=== PATIENT | female | born 1955 | race Caucasian/White ===

== ENCOUNTER → 2024-06-05 | Outpatient (CLI) | payer OTHER ==
[~2024-06-05] MED LIST: ABIL15TA OR; ABIL30TA4; ABIL30TA4 OR; ARIP30TA38 PO; BABY81CH OR; BENZ0.5T2 PO; BUPR15TA; COGE1INJ PO; COGENTIN PO; COLA100C2 OR; CYMB1CAP5 OR; DEPLIN; ESZOPICLONE 3 MG; EZET10TA21 PO; FENO134C20 PO; FERR325T OR; FLUO40CA PO; GABA800T3 PO; GEMF600T OR; GEOD20CA14; HYDR-3363 PO; HYDR50TA8 OR; HYDROXYZINE PO; LAMI1TAB7 OR; LAMI25TA OR; LITH150C OR; LITH450T; LOPI600T OR; LOVA10TA OR; MULTI VITAMIN PO; NALTREXONE; PROZ20CA OR; PROZ40CA OR; REME30TA OR; REQU1TAB14 OR; REQU1TAB15; REST15CA OR; RISP1TAB OR; SERO1TAB; SERO200T OR; SERO200T43; SERO300T20; TEMA15CA2 OR; THORAZINE PO; TRAZ-186 PO; TRAZ100T; TRAZ150T OR; TRIL1TAB OR; TRIL600T OR; VENTAER INH; VITAMIN D PO; VITAMIN D50000 UNT OR; WELL200T; WELL75TA OR; ZIPR80CAP OR; ZOCO5TAB OR
== END ==
LOC: M RAD 14:55
PROVIDERS: ATTEND Physician Assistant
DX: M25.551 Pain in right hip (principal); M16.0 Bilateral primary osteoarthritis of hip; M17.0 Bilateral primary osteoarthritis of knee

== ENCOUNTER 2024-06-10 06:04 | Observation (INO) | payer OTHER ==
[2024-06-10] VITALS (7 sets, daily range): BP systolic 107–137; BP diastolic 55–74; TEMP 96.6–98; O2SAT 97–99
[~2024-06-10] VITALS: Ht 170.2 cm; Wt 82.9 kg
[2024-06-10] MEDS ORDERED: NS (Normal Saline) 0.9% 1,000 ML IV SCH (06:15)
[2024-06-10] MEDS ORDERED: dexmedeTOMIDine (4MCG/ML)200MCG/50ML BTL (PRECEDEX) As Ordered ONE (07:00)
[2024-06-10] MEDS ORDERED: ONDANSETRON 4MG 2ML VIAL As Ordered ONE (07:00)
[2024-06-10] MEDS ORDERED: ACETAMINOPHEN 1000MG/100ML IV BAG As Ordered ONE (07:00)
[2024-06-10] MEDS ORDERED: fentaNYL 100 MCG/2 ML INJECTION As Ordered ONE (07:00)
[2024-06-10] MEDS ORDERED: LIDOCAINE 2% 100MG/5ML SDV (FOR ANES.) As Ordered ONE (07:00)
[2024-06-10] MEDS ORDERED: propofoL 200 MG/20 ML VIAL As Ordered ONE (07:00)
[2024-06-10] MEDS ORDERED: MIDAZOLAM INJ 2MG/2ML VIAL As Ordered ONE (07:01)
[2024-06-10] MEDS ORDERED: HYDR-3363 PO (07:09)
[2024-06-10] MEDS ORDERED: HOME MED LIST COMPLETE! XX SCH (07:10)
[2024-06-10] MEDS ORDERED: ROCURONIUM BROMIDE 50MG/5ML VIAL As Ordered ONE (07:23)
[2024-06-10] MEDS: ceFAZolin SOD 2 GM in IV 1 EA IV ONE (08:25)
[2024-06-10] MEDS ORDERED: GLYCOPYRROLATE INJ 0.2 MG/ML 2 ML VIAL As Ordered ONE (08:38)
[2024-06-10] MEDS ORDERED: ATROPINE SULF 0.4 MG/ML 1ML VIAL As Ordered ONE (09:04)
[2024-06-10] MEDS ORDERED: PHENYLephrine 500MCG 5ML (100MCG/ML) SYRINGE As Ordered ONE (09:43)
[2024-06-10] MEDS: REK 50ML SYRINGE IA ONE (10:45)
[2024-06-10] MEDS: TRANEXAMIC ACID 100 MG/ML 10ML VIAL As Ordered ONE (10:50)
[2024-06-10] MEDS: VANCOMYCIN 1000MG/20ML VIAL As Ordered ONE (10:50)
[2024-06-10] MEDS ORDERED: oxyCODONE 5MG TAB PO PRN (11:10)
[2024-06-10] MEDS ORDERED: HYDROMORPHONE HCL 0.5 MG/ 0.5 ML SYRINGE IV PRN (11:10)
[2024-06-10] MEDS ORDERED: ONDANSETRON 4MG 2ML VIAL IV PRN (11:10)
[2024-06-10] MEDS ORDERED: fentaNYL 100 MCG/2 ML INJECTION IV PRN (11:10)
[2024-06-10] MEDS ORDERED: KETAMINE HCL 200MG/20ML VIAL As Ordered ONE (11:23)
[2024-06-10] MEDS: NS (Normal Saline) 0.9% 800 ML IV ONE (11:38)
[2024-06-10] MEDS: PHENYLephrine 500MCG 5ML (100MCG/ML) SYRINGE IV PRN (11:40)
[2024-06-10 12:04] LABS: HEMATOCRIT 31.1 % (36.0-47.0); HEMOGLOBIN 10.3 g/dl (12.0-15.5); MEAN CORPUSCULAR HEMOGLOBIN 29.4 pg (27.0-33.0); MEAN CORPUSCULAR HGB CONC 33.1 g/dl (32.0-36.5); MEAN CORPUSCULAR VOLUME 88.9 fl (80.0-96.0); PLATELET COUNT, AUTOMATED 224 10^3/uL (150-450); WHITE BLOOD COUNT 14.6 10^3/uL (4.0-10.0)
[2024-06-10] MEDS: PHENYLEPHRINE HCL INJ 10 MG in D5W 100 ML IV SCH (12:10)
[2024-06-10] MEDS ORDERED: ACETAMINOPHEN 500 MG TAB PO PRN (15:25)
[2024-06-10] MEDS ORDERED: ALBUTEROL 90 MCG/ACT 8GM HFA INHALER INH PRN (15:25)
[2024-06-10] MEDS: ceFAZolin SOD 2 GM in IV 1 EA IV SCH (16:16)
[2024-06-10] MEDS: NS (Normal Saline) 0.9% 1,000 ML IV SCH (19:55)
[2024-06-10] MEDS: traZODone 50 MG TAB PO SCH (21:01)
[2024-06-10] MEDS: FLUoxetine 20MG CAP PO SCH (21:01)
[2024-06-10] MEDS: BENZTROPINE 0.5 MG TAB PO SCH (21:02)
[2024-06-10] MEDS: EZETIMIBE 10MG TABLET (ZETIA) PO SCH (21:02)
[2024-06-11] VITALS (7 sets, daily range): BP systolic 103–156; BP diastolic 47–98; TEMP 97.2–98.4; O2SAT 93–99
[2024-06-11] MEDS: KETOROLAC 30 MG/ML 1ML VIAL IV PRN (00:58)
[2024-06-11 06:42] LABS: HEMOGLOBIN 8.6 g/dl (12.0-15.5); MEAN CORPUSCULAR HEMOGLOBIN 29.2 pg (27.0-33.0); MEAN CORPUSCULAR HGB CONC 33.1 g/dl (32.0-36.5); MEAN CORPUSCULAR VOLUME 88.1 fl (80.0-96.0); PLATELET COUNT, AUTOMATED 177 10^3/uL (150-450); RED BLOOD COUNT 2.95 10^6/uL (4.00-5.40); WHITE BLOOD COUNT 10.2 10^3/uL (4.0-10.0)
[2024-06-11 07:17] LABS: BLOOD UREA NITROGEN 15 MG/DL (9-23); CALCIUM LEVEL 8.9 MG/DL (8.3-10.6); CARBON DIOXIDE LEVEL 26 MMOL/L (20-31); CHLORIDE LEVEL 112 MMOL/L (98-107); CREATININE FOR GFR 0.77 MG/DL (0.55-1.30); GLOMERULAR FILTRATION RATE > 60.0 (>45); GLUCOSE, FASTING 119 MG/DL (74-106); POTASSIUM SERUM 3.9 MMOL/L (3.5-5.1); SODIUM LEVEL 143 MMOL/L (136-145)
[2024-06-11] MEDS ORDERED: PHENYLEPHRINE 10MG/ML 1ML VIAL As Ordered ONE (09:30)
[2024-06-11 12:29] LABS: HEMATOCRIT 28.2 % (36.0-47.0); HEMOGLOBIN 9.3 g/dl (12.0-15.5)
[2024-06-11] MEDS ORDERED: PERC5TAB12 PO (13:29)
[2024-06-11] MEDS ORDERED: ACET-683 PO (13:29)
[2024-06-11] MEDS ORDERED: IBUP-1022 PO (13:29)
[2024-06-11] MEDS ORDERED: ASPI-615 PO (13:29)
[2024-06-11] MEDS ORDERED: COLA100C5 PO (13:29)
== END 2024-06-11 15:13 | disposition home health service (06) ==
LOC: M SDC 06:04 → M RR INP 06:05 → M PCU 15:03
PROVIDERS: ADMIT Internal Medicine Nephrology; ATTEND Internal Medicine Nephrology
DX: M16.11 Unilateral primary osteoarthritis, right hip (principal); I95.81 Postprocedural hypotension; D62 Acute posthemorrhagic anemia; E78.5 Hyperlipidemia, unspecified; J45.909 Unspecified asthma, uncomplicated; F25.0 Schizoaffective disorder, bipolar type; F43.10 Post-traumatic stress disorder, unspecified; G47.30 Sleep apnea, unspecified; F44.7 Conversion disorder with mixed symptom presentation; F50.20 Bulimia nervosa, unspecified; Z98.890 Other specified postprocedural states; Z79.899 Other long term (current) drug therapy
CPT/HCPCS: 27130; 36415; 72170; 80048; 85014; 85018; 85027; 88300; 96365; 96366; 96375; 96376; 97116; 97161; 97165; 97530; C1713; C1776; G0378; J0131; J0171; J0461; J0690; J1100; J1596; J1885; J2250; J2371; J2405; J2795; J3010; J3370; P9045; S2900